=== PATIENT | female | born 2000 | race Caucasian/White ===

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

== ENCOUNTER 2020-11-18 11:46 | Outpatient (CLI) | payer OTHER ==
[~2020-11-18 11:46] MED LIST changes: +AMOX-CLAV 875-1 EACH PO; +ORASEP SPRAY30 ML MM
== END 2020-11-18 11:54 | disposition home or self-care (01) ==
LOC: RAD 11:46
PROVIDERS: ATTEND General Practice
DX: R05 Cough (principal)

== ENCOUNTER 2021-05-23 10:04 | Emergency (ER) | payer OTHER ==
[~2021-05-23] VITALS: Ht 160 cm; Wt 58.1 kg
== END 2021-05-23 13:04 | disposition home or self-care (01) ==
LOC: ER 10:04
DX: J03.90 Acute tonsillitis, unspecified (principal)

== ENCOUNTER 2022-06-10 08:55 | Emergency (ER) | payer OTHER ==
[~2022-06-10] VITALS: Ht 160 cm; Wt 61.2 kg
== END 2022-06-10 10:16 | disposition home or self-care (01) ==
LOC: ER 08:55
DX: J02.0 Streptococcal pharyngitis (principal)